=== PATIENT | male | born 1985 | race Caucasian/White ===

== ENCOUNTER 2019-07-15 06:41 | Inpatient (IN) | payer OTHER ==
--- NOTE | 2019-07-11 12:36 | HPE ---
DATE OF ANTICIPATED ADMISSION: 07/15/2019 ATTENDING PHYSICIAN: Dr. Guilherme Phipps CHIEF COMPLAINT: Cervical radiculopathy. HISTORY: This is a 33-year-old male patient with progressively worsening cervical radiculopathy who has failed to improve with conservative treatment. He has elected for surgical intervention for his continued symptoms and has been consented for a right C5-6 anterior cervical discectomy and fusion at C5-6 using donor bone and metal hardware. ALLERGIES: PENICILLIN, AMOXICILLIN. CURRENT MEDICATIONS: - Celebrex one by mouth every day as needed for pain - tizanidine - Zyrtec PAST MEDICAL HISTORY: Noncontributory. SURGICAL HISTORY: Vasectomy, PRK, left hand cyst removal. PAST FAMILY HISTORY: Mother with history of a stroke as a teenager and some difficulties with unknown type of anesthesia once. SOCIAL HISTORY: Denies nicotine or tobacco use. Reports one to two drinks a day. REVIEW OF SYSTEMS: Denies fever, chills, chest pain, shortness of breath, nausea, vomiting, diarrhea, recent upper respiratory or urinary tract infection symptoms. PHYSICAL EXAMINATION: Height 5 feet 11 inches, weight 196, temperature 96.6, pulse 64, respirations 14, blood pressure 126/70. Normocephalic, atraumatic. Neck supple and nontender with no lymphadenopathy or jugular venous distention (JVD). Overlying skin is intact with no rashes or breaks in the skin. Bilateral upper extremities well perfused. S1, S2 auscultated with no murmurs, rubs, or gallops. Lungs: Clear to auscultation bilaterally with no wheezes, rales, or rhonchi. Abdomen: Soft and nontender. IMPRESSION: Cervical radiculopathy. PLAN: Consented for right C5-6 anterior cervical discectomy and fusion C5-6 with donor bone and metal hardware per Dr. Guilherme Phipps.
[2019-07-15] VITALS (8 sets, daily range): BP systolic 129–157; BP diastolic 75–92; O2SAT 95
[~2019-07-15] VITALS: Ht 180.3 cm; Wt 90.7 kg
[~2019-07-15 06:41] MED LIST: CELE1CAP4 PO; EQLTAB93 PO; LIDOCAINE 1% MDV 20ML VIAL SQ PRN; TIZA4CAP PO
[2019-07-15] MEDS ORDERED: GABAPENTIN 300 MG CAP PO ONE (07:00)
[2019-07-15] MEDS ORDERED: VANCOMYCIN HCL 1,000 MG, VIAL MATE ADAPTER 1 EACH in D5W 250 ML IV ONE ×2 (07:00→20:00)
[2019-07-15] MEDS ORDERED: LR 1,000 ML IV ONE (07:00)
[2019-07-15] MEDS ORDERED: PERCOCET 5MG/325MG TAB PO ONE (07:00)
[2019-07-15] MEDS ORDERED: MIDAZOLAM INJ 2 MG/2 ML VIAL (J2250) As Ordered ONE (08:03)
[2019-07-15] MEDS ORDERED: ROCURONIUM BROMIDE 50 MG/5 ML VIAL As Ordered ONE ×2 (08:03→09:20)
[2019-07-15] MEDS ORDERED: LIDOCAINE 2% INJ 100 MG/5 ML SDV (FOR ANES.) As Ordered ONE (08:03)
[2019-07-15] MEDS ORDERED: propofoL 200 MG/20 ML VIAL As Ordered ONE ×4 (08:03→10:09)
[2019-07-15] MEDS ORDERED: fentaNYL 250 MCG/5 ML INJECTION (J3010) As Ordered ONE (08:03)
[2019-07-15] MEDS ORDERED: THROMBIN SOLN 20,000 UNITS KIT As Ordered ONE (08:09)
[2019-07-15] MEDS ORDERED: LIDOCAINE W/EPINEPHRINE 1% 20ML VIAL As Ordered ONE (08:09)
[2019-07-15] MEDS ORDERED: methylPREDNISolone 500 MG VIAL (J2930) As Ordered ONE (08:09)
[2019-07-15] MEDS ORDERED: BACITRACIN PWD 50,000 UNITS VIAL As Ordered ONE (08:09)
[2019-07-15] MEDS ORDERED: METOCLOPRAMIDE INJ 10MG/2ML VIAL (J2765) As Ordered ONE (09:03)
[2019-07-15] MEDS ORDERED: NEOSTIGMINE 10 MG/10 ML VIAL (J2710) As Ordered ONE ×2 (10:09→10:13)
[2019-07-15] MEDS ORDERED: GLYCOPYRROLATE INJ 0.2 MG/ML 2 ML VIAL As Ordered ONE (10:09)
[2019-07-15] MEDS ORDERED: ONDANSETRON 4MG/2ML VIAL (J2405) As Ordered ONE (10:09)
[2019-07-15] MEDS ORDERED: ACETAMINOPHEN 1000MG 100ML IV BTL (OFIRMEV) (J0131 PER 10MG) As Ordered ONE (10:09)
[2019-07-15] MEDS ORDERED: HYDROmorphone HCL 2 MG/ML 1ML VIAL (J1170) As Ordered ONE (10:16)
[2019-07-15] MEDS: fentaNYL 100 MCG/2 ML INJECTION (J3010) IV PRN ×3 (11:44→12:08)
[2019-07-15] MEDS ORDERED: fentaNYL 100 MCG/2 ML INJECTION (J3010) As Ordered ONE (11:52)
[2019-07-15] MEDS ORDERED: HYDROMORPHONE HCL 0.5 MG/ 0.5 ML SYRINGE (J1170 PER 1) IV PRN (12:15)
[2019-07-15] MEDS: D5W/LR 1,000 ML IV SCH ×2 (12:15→22:15)
[2019-07-15] MEDS ORDERED: oxyCODONE 5MG TAB PO PRN (12:15)
[2019-07-15] MEDS ORDERED: PERCOCET 5MG/325MG TAB PO PRN (12:15)
[2019-07-15] MEDS ORDERED: LR 1,000 ML IV SCH (12:15)
[2019-07-15] MEDS ORDERED: ONDANSETRON 4MG/2ML VIAL (J2405) IV PRN (12:15)
[2019-07-15] MEDS ORDERED: PROMETHAZINE INJ 25 MG/ML VIAL (J2550) IV PRN (12:30)
--- NOTE | 2019-07-15 13:21 | REP ---
Clinical: Positioning for cervical fusion. Technique: Three portable supine cross-table lateral views of the cervical spine. Findings: Final image demonstrates the patient to be status post anterior cervical fusion and discectomy at C5-6. Alignment is maintained. Prevertebral postsurgical changes noted. Impression: Status post anterior fusion at C5-6. Electronically Signed by Marlo Page MD 07/15/2019 01:13 P
[2019-07-15] MEDS: PERCOCET 5MG/325MG TAB PO PRN ×2 (15:14→20:32)
[2019-07-15] MEDS: CYCLOBENZAPRINE 10 MG TAB PO PRN ×2 (15:14→22:12)
--- NOTE | 2019-07-15 17:56 | ECGEPIP ---
[facility] Test Date: 2019-07-15 Pat Name: TERRIE PHIPPS Department: Room: [facility] Gender: Male Registered Nurse Cardiac: DOMINIQUE : 1985 Requested By: ANTHONY Romano Order Number: [id number] Reading MD: Miesha Santos Measurements Intervals [place] Rate: 56 P: 41 CO: 196 QRS: 34 QRSD: 99 T: 37 QT: 405 QTc: 394 Interpretive Statements SINUS BRADYCARDIA ST ELEVATION, PROBABLY EARLY REPOLARIZATION NO PRIOR Electronically Signed on 07-15-2019 17:55:48 EDT by Miesha Santos
[2019-07-15] MEDS ORDERED: ceFAZolin SOD 2 GM in IV 1 EA IV SCH (18:00)
[2019-07-15] MEDS: MORPHINE 4 MG/ML 1ML VIAL/SYRINGE (J2270) IV PRN (18:07)
[2019-07-15] MEDS: METAMUCIL (PSYLLIUM) PACKET PO SCH ×2 (20:30→21:00)
[2019-07-15] MEDS: ONDANSETRON 4MG/2ML VIAL (J2405) IV SCH (20:30)
[2019-07-15] MEDS: CEPACOL LOZENGE PO PRN (20:46)
[2019-07-16] MEDS: ONDANSETRON 4MG/2ML VIAL (J2405) IV SCH ×4 (01:00→08:29)
[2019-07-16] MEDS: CEPACOL LOZENGE PO PRN (01:57)
[2019-07-16] MEDS: MORPHINE 4 MG/ML 1ML VIAL/SYRINGE (J2270) IV PRN ×2 (01:57→06:00)
[2019-07-16 02:00] VITALS: BP 148/76
[2019-07-16 06:00] VITALS: BP 137/77
--- NOTE | 2019-07-16 07:24 | RO ---
DATE OF PROCEDURE: 07/15/2019 PREOPERATIVE DIAGNOSIS: Left upper extremity cervical radiculopathy with disk herniation at C5-6. POSTOPERATIVE DIAGNOSIS: Left upper extremity cervical radiculopathy with disk herniation at C5-6. PROCEDURE: Anterior cervical diskectomy and fusion at C5-6 with structural bone graft and anterior cervical instrumentation C5-6. SURGEON: Dr. Guilherme Phipps MEDICATION CARE MANAGER: Felix Talavera PA-C ANESTHESIA: General. ESTIMATED BLOOD LOSS: Less than 30. COMPLICATIONS: None. COMPONENTS USED: Include a Parkway 12 mm plate, 15 mm self-tapping screws, VG2 5x7 structural allograft for spine surgery. CONSENT: Reviewed in detail with the patient including a justyn discussion of the pathology involved, alternatives including doing nothing or delay of the case and risks including, but not limited to pain, failure, infection, need for more surgery, swallowing trouble, hoarseness and other issues. The patient agrees to proceed. OPERATIVE COURSE: Identified in the holding area. Site and side verified. Brought to the operating room. General endotracheal anesthesia was administered. He was positioned in the supine position for exposure of the cervical spine. The shoulders were taped at the side. Head halter traction with 7 pounds applied. Once I and the tongue and groove machine feeder were comfortable with the patient's positioning, he was sterilely prepped and draped in the usual fashion. Incision was outlined with a marking pen. Cross-table lateral x-ray was taken to verify the location of the incision. The incision was injected with 1% lidocaine with epinephrine 3 mL. A 3.5 loupe and headlamp were utilized. I stood on the patient's right and Mr. Talavera on the left. Incision was made 10 blade and developed down through skin and subcuticular tissues to the platysma. The platysma was elevated and divided using bipolar cautery as well as tenotomy scissors. The sternocleidomastoid was identified. The omohyoid was identified. Dissection continued medial to the sternocleidomastoid and superiorly to the omohyoid. The carotid sheath was identified and protected. The dissection identified the prevertebral fascia. The prevertebral fascia was opened in a spreading fashion using tenotomy scissors with access to the anterior vertebral column. Peanut swabs were utilized to further clear the anterior vertebral column. A Press4Kidst spinal needle was placed for localization which was localized for C6-7. The dissection continued exposing superiorly at C5-6. At this stage, longus coli muscle was elevated at its medial border. Distraction pins were placed across C5-6. Shadow-Line retractor was placed, distracted across C5-6 and opened annulus with an 11 blade. Removed disk material using pituitaries. End plates were further repaired by removing cartilage with curettes. Oval bur was then utilized to further contour end plates and uncinate process. Next, the posterior longitudinal ligament was identified, elevated with curettes and removed using #2 Kerrisons, particularly on the left. This dissection extended toward the neural foramina to adequately decompress that area. Rasps were then utilized through a size 5x7 which fit appropriately followed by a 5x7 sound that again fit appropriately. We selected a 5x7 VG2 graft. The wound was irrigated. The graft was installed. The plate was selected, a 12 [address] Park[address] plate. We drilled and placed the appropriate 15 mm self-tapping screws. Locking devices were engaged. The wound was irrigated. The wound was closed with interrupted stitches with platysma and deep dermis and Dermabond utilized on skin. Collar was applied. The patient was moved to the recovery room after extubation in good condition and moving all four extremities. For further details, please refer to the medical record.
[2019-07-16] MEDS: METAMUCIL (PSYLLIUM) PACKET PO SCH (08:24)
[2019-07-16] MEDS: PERCOCET 5MG/325MG TAB PO PRN (08:51)
[2019-07-16] MEDS: CYCLOBENZAPRINE 10 MG TAB PO PRN (08:51)
[2019-07-16 09:00] VITALS: O2SAT 95
[2019-07-16] MEDS ORDERED: PERC5TAB12 PO (09:59)
[2019-07-16] MEDS ORDERED: CYCL10TA PO (09:59)
== END 2019-07-16 11:15 | disposition home or self-care (01) | DRG 473 ==
LOC: M OR 06:41 → M MS5PR 12:55
PROVIDERS: ADMIT Orthopaedic Surgery; ATTEND Orthopaedic Surgery
PROC: 0RB30ZZ Excision of Cervical Vertebral Disc, Open Approach (ICD-10-PCS; 2019-07-15)
PROC: 0RG2070 Fusion of 2 or more Cervical Vertebral Joints with Autologous Tissue Substitute, Anterior Approach, Anterior Column, Open Approach (ICD-10-PCS; principal; 2019-07-15 08:30)
DX: M50.222 Other cervical disc displacement at C5-C6 level (principal)

== ENCOUNTER 2020-10-09 03:37 | Emergency (ER) | payer OTHER ==
[~2020-10-09] VITALS: Ht 180.3 cm; Wt 89.6 kg
[~2020-10-09 03:37] MED LIST changes: +CYCL-707 PO; -LIDOCAINE 1% MDV 20ML VIAL SQ PRN; +PERC5TAB12 PO
[2020-10-09 04:09] LABS: BASO % 0.8 % (0.0-1.0); EOS # 0.4 10^3/uL (0.0-0.5); EOS % 7.6 % (0.0-3.0); HEMATOCRIT 41.7 % (42.0-52.0); LYMPH # 2.7 10^3/uL (1.5-5.0); LYMPH % 55.9 % (24.0-44.0); MEAN CORPUSCULAR HEMOGLOBIN 29.6 pg (27.0-33.0); MEAN CORPUSCULAR HGB CONC 33.6 g/dl (32.0-36.5); MEAN CORPUSCULAR VOLUME 88.2 fl (80.0-96.0); MONO # 0.4 10^3/uL (0.0-0.8); NEUTROPHILS # 1.3 10^3/uL (1.5-8.5); NEUTROPHILS % 26.5 % (36.0-66.0); PLATELET COUNT, AUTOMATED 200 10^3/uL (150-450); RED BLOOD COUNT 4.73 10^6/uL (4.30-6.10); WHITE BLOOD COUNT 4.9 10^3/uL (4.0-10.0)
[2020-10-09 04:36] LABS: ALBUMIN 3.9 GM/DL (3.2-5.2); ALT/SGPT 34 U/L (12-78); BILIRUBIN,DIRECT < 0.1 MG/DL (0.0-0.2); BILIRUBIN,TOTAL 0.3 MG/DL (0.2-1.0); BLOOD UREA NITROGEN 14 MG/DL (7-18); CALCIUM LEVEL 8.6 MG/DL (8.5-10.1); CARBON DIOXIDE LEVEL 27 MEQ/L (21-32); CHLORIDE LEVEL 113 MEQ/L (98-107); CREATININE FOR GFR 0.92 MG/DL (0.70-1.30); GLOMERULAR FILTRATION RATE > 60.0 (>60); GLUCOSE, FASTING 87 MG/DL (70-100); LIPASE 118 U/L (73-393); SODIUM LEVEL 144 MEQ/L (136-145); TOTAL PROTEIN 6.7 GM/DL (6.4-8.2)
[2020-10-09] MEDS ORDERED: KETOROLAC 30 MG/ML 1ML VIAL IV ONE (05:45)
--- NOTE | 2020-10-09 08:06 | REPVR ---
PROCEDURE INFORMATION: Exam: CT Abdomen And Pelvis Without Contrast Exam date and time: 10/09/2020 5:41 AM Age: 34 years old Clinical indication: Abdominal pain; Flank; Left; Additional info: Left flank pain TECHNIQUE: Imaging protocol: Computed tomography of the abdomen and pelvis without contrast. Radiation optimization: All CT scans at this facility use at least one of these dose optimization techniques: automated exposure control; mA and/or kV adjustment per patient size (includes targeted exams where dose is matched to clinical indication); or iterative reconstruction. COMPARISON: No relevant prior studies available. FINDINGS: Limitations: Evaluation of the solid and vascular structures is somewhat limited by lack of IV contrast. Lungs: The visualized lung bases demonstrate mild dependent atelectasis. Liver: Grossly unremarkable. Gallbladder and bile ducts: No gallstones are evident, but ultrasound would be more sensitive. No gross biliary ductal dilatation. Pancreas: Grossly unremarkable. Spleen: Grossly unremarkable. Adrenal glands: Grossly unremarkable. Kidneys and ureters: While there is no significant hydroureteronephrosis, a 3 x 2 x 2 mm stone is present in the distal left ureter, just proximal to the ureterovesical junction (images 201:138, 202:49). There is no right-sided hydronephrosis or stone, and the kidneys appear otherwise grossly unremarkable. Stomach and bowel: The unopacified small bowel is not significantly distended to suggest obstruction. Mild descending and sigmoid colonic diverticulosis without evidence for diverticulitis. Appendix: The appendix appears normal where at least partially visualized, and there is no inflammatory change in the region. Intraperitoneal space: No free air or significant free fluid. Vasculature: Unremarkable. No abdominal aortic aneurysm. Lymph nodes: No gross pathologic lymphadenopathy. Urinary bladder: Grossly unremarkable. Reproductive: Unremarkable as visualized. Bones/joints: Unremarkable. No acute fracture. Soft tissues: Very small fat containing umbilical hernia. IMPRESSION: 1. 3 mm distal left ureteral stone without significant hydroureteronephrosis. 2. Mild descending and sigmoid colonic diverticulosis without evidence for diverticulitis. 3. Very small fat containing umbilical hernia. Electronically signed by: Felix Spence On 10/09/2020 08:06:46 AM
[2020-10-09] MEDS ORDERED: IBUP-1022 PO (08:14)
[2020-10-09] MEDS ORDERED: FLOM0.4C39 PO (08:14)
[2020-10-09 08:15] VITALS: BP 127/82
== END 2020-10-09 08:23 | disposition home or self-care (01) ==
LOC: M ED 03:37
DX: N20.1 Calculus of ureter (principal); N23 Unspecified renal colic; G47.30 Sleep apnea, unspecified; Z79.899 Other long term (current) drug therapy; Z88.0 Allergy status to penicillin
CPT/HCPCS: 74176; 80048; 80076; 81001; 83690; 85025; 96374; 99284; J1885

== ENCOUNTER → 2020-12-09 | Outpatient (CLI) | payer OTHER ==
[~2020-12-09] MED LIST changes: +FLOM0.4C39 PO; +IBUP-1022 PO
[2020-12-09 13:22] LABS: INR 1.03; PROTHROMBIN TIME 13.9 SECONDS (12.7-14.5)
[2020-12-09 13:23] LABS: PARTIAL THROMBOPLASTIN TIME 31.8 SECONDS (25.9-37.0)
[2020-12-09 13:43] LABS: ALBUMIN 4.2 GM/DL (3.2-5.2); ALT/SGPT 36 U/L (12-78); BILIRUBIN,DIRECT 0.2 MG/DL (0.0-0.2); BILIRUBIN,TOTAL 0.7 MG/DL (0.2-1.0); TOTAL PROTEIN 7.3 GM/DL (6.4-8.2)
[2020-12-09 14:31] LABS: HEPATITIS C VIRUS ABY INDEX < 0.0 INDEX (<0.8)
[2020-12-11 07:11] LABS: HEPATITIS B CORE ANTIBODY IGG Negative (Negative); IGASUB2 151.8 mg/dL (73.2-301.2); IGASUB3 39.6 mg/dL (13.4-97.9); IgA SERUM (part of Subclasses) 205 mg/dL (90-386); TISSUE TRANSGLUTAMINASE IgA <2 U/mL (0-3)
== END ==
LOC: M LAB 12:08
PROVIDERS: ATTEND Internal Medicine Gastroenterology
DX: R93.3 Abnormal findings on diagnostic imaging of other parts of digestive tract (principal)

== ENCOUNTER → 2020-12-11 | Outpatient (REF) | payer OTHER | LOC: M LAB REF 11:23 | PROVIDERS: ATTEND Internal Medicine Gastroenterology | DX: R93.3 Abnormal findings on diagnostic imaging of other parts of digestive tract (principal) ==

== ENCOUNTER → 2021-01-07 | Outpatient (CLI) | payer OTHER ==
[~2021-01-07] MED LIST changes: +PROHANCE 279.3MG/ML 15ML VIAL As Ordered ONE; +PROHANCE 279.3MG/ML 5ML VIAL As Ordered ONE
--- NOTE | 2021-01-07 10:12 | REP ---
INDICATION: ABNORMAL FINDINGS ON DX IMAGING OF PRT DIGESTIVE. COMPARISON: CT 10/09/2020. TECHNIQUE: Multiple sequences obtained in the axial coronal planes prior to and following the intravenous administration of 18 mL ProHance. FINDINGS: In the inferior aspect of the right lobe of the liver there is a 1.2 cm nodule which is hyperintense on T2 weighted imaging and demonstrates enhancement characteristics characteristic of a hemangioma. No other liver lesion is seen. The gallbladder demonstrates no definite filling defect and no evidence of wall thickening or edema. The spleen is normal in size with no intrinsic abnormality. The adrenal glands are normal. The pancreas demonstrates no mass. There is no pancreatic duct dilatation. The common bile duct is normal in caliber. The visualized kidneys are unremarkable. There is no hydronephrosis. There is no adenopathy or free fluid in the abdomen. IMPRESSION: Right lobe liver hemangioma 1.2 cm in diameter. No other abnormalities seen. <Electronically signed by Alvaro Haywood > 01/07/21 [id number]
== END ==
LOC: M RAD 08:40
PROVIDERS: ATTEND Internal Medicine Gastroenterology
DX: D13.4 Benign neoplasm of liver (principal)
CPT/HCPCS: 74183; A9576

== ENCOUNTER 2021-01-22 08:46 | Day surgery (SDC) | payer OTHER ==
[~2021-01-22] VITALS: Ht 180.3 cm; Wt 85.7 kg
[~2021-01-22 08:46] MED LIST changes: +FLON1SPR; +NS 1,000 ML IV ONE; -PROHANCE 279.3MG/ML 15ML VIAL As Ordered ONE; -PROHANCE 279.3MG/ML 5ML VIAL As Ordered ONE; +SUMA50TA2 PO
[2021-01-22] MEDS ORDERED: propofoL 200 MG/20 ML VIAL As Ordered ONE (10:37)
--- NOTE | 2021-01-22 11:18 | ROOR ---
Patient Name: Tad Whittington Procedure Date: 01/22/2021 10:37 AM Date of : 1985 Age: 35 Room: [facility] Gender: Male Note Status: Finalized Procedure: Colonoscopy Indications: Abnormal CT of the GI tract Providers: Romero Pendleton MD Referring MD: AMERICA CROSS MD Requesting Provider: Medicines: Monitored Anesthesia Care Complications: No immediate complications. Procedure: Pre-Anesthesia Assessment: - Prior to the procedure, a History and Physical was performed, and patient medications and allergies were reviewed. The patient is competent. The risks and benefits of the procedure and the sedation options and risks were discussed with the patient. All questions were answered and informed consent was obtained. Patient identification and proposed procedure were verified by the physician, the nurse and the anesthesiologist in the procedure room. Mental Status Examination: alert and oriented. CV Examination: normal. Prophylactic Antibiotics: The patient does not require prophylactic antibiotics. Prior Anticoagulants: The patient has taken no previous anticoagulant or antiplatelet agents. ASA Grade Assessment: II - A patient with mild systemic disease. After reviewing the risks and benefits, the patient was deemed in satisfactory condition to undergo the procedure. The anesthesia plan was to use monitored anesthesia care (MAC). Immediately prior to administration of medications, the patient was re-assessed for adequacy to receive sedatives. The heart rate, respiratory rate, oxygen saturations, blood pressure, adequacy of pulmonary ventilation, and response to care were monitored throughout the procedure. The physical status of the patient was re-assessed after the procedure. The Colonoscope was introduced through the anus and advanced to the terminal ileum, with identification of the appendiceal orifice and IC valve. The colonoscopy was performed without difficulty. The patient tolerated the procedure well. The quality of the bowel preparation was good. The terminal ileum, ileocecal valve, appendiceal orifice, and rectum were photographed. Scope insertion time was 2 minutes. Scope withdrawal time was 9 minutes. The total duration of the procedure was 12 minutes. Findings: The perianal and digital rectal examinations were normal. Patchy inflammation, mild in severity and characterized by erosions and granularity was found in the terminal ileum. Biopsies were taken with a cold forceps for histology. Verification of patient identification for the specimen was done by the physician and nurse using the patient's name, date and medical record number. Estimated blood loss was minimal. Three sessile polyps were found in the recto-sigmoid colon. The polyps were 3 to 4 mm in size. These polyps were removed with a cold biopsy forceps. Resection and retrieval were complete. A few large-mouthed diverticula were found in the sigmoid colon. Normal mucosa was found in the entire colon. Biopsies for histology were taken with a cold forceps from the right colon, left colon and rectosigmoid colon for evaluation of microscopic colitis. Non-bleeding external and internal hemorrhoids were found during retroflexion. The hemorrhoids were medium-sized. Impression: - Ileitis. Biopsied. - Three 3 to 4 mm polyps at the recto-sigmoid colon, removed with a cold biopsy forceps. Resected and retrieved. - Diverticulosis in the sigmoid colon. - Normal mucosa in the entire examined colon. Biopsied. - Non-bleeding external and internal hemorrhoids. Recommendation: - Patient has a contact number available for emergencies. The signs and symptoms of potential delayed complications were discussed with the patient. Return to normal activities tomorrow. Written discharge instructions were provided to the patient. - High fiber diet. - Continue present medications. - Await pathology results. - Repeat colonoscopy in 5-10 years for surveillance based on pathology results. - Telephone GI clinic for pathology results in 2 weeks. - Return to GI clinic if persistent symptoms or new symptoms. - Return to primary care physician. Procedure Code(s): --- Professional --- 02353, Colonoscopy, flexible; with biopsy, single or multiple Diagnosis Code(s): --- Professional --- K52.9, Noninfective gastroenteritis and colitis, unspecified K63.5, Polyp of colon K64.8, Other hemorrhoids K57.30, Diverticulosis of large intestine without perforation or abscess without bleeding R93.3, Abnormal findings on diagnostic imaging of other parts of digestive tract CPT copyright 2019 [employer]. All rights reserved. The codes documented in this report are preliminary and upon cia agent review may be revised to meet current compliance requirements. Romero Pendleton MD Romero Pendleton MD 01/22/2021 11:17:54 AM Electronically signed by Romero Pendleton MD Number of Addenda: 0 Note Initiated On: 01/22/2021 10:37 AM Estimated Blood Loss: Estimated blood loss was minimal.
[2021-01-22 11:29] VITALS: BP 126/73
== END 2021-01-22 11:31 | disposition home or self-care (01) ==
LOC: M OPP 08:46
PROVIDERS: ATTEND Internal Medicine Gastroenterology
DX: K52.9 Noninfective gastroenteritis and colitis, unspecified (principal); K57.30 Diverticulosis of large intestine without perforation or abscess without bleeding; K64.8 Other hemorrhoids; K63.5 Polyp of colon; R93.3 Abnormal findings on diagnostic imaging of other parts of digestive tract; Z79.899 Other long term (current) drug therapy; Z88.0 Allergy status to penicillin